=== PATIENT | male | born 1955 | race Caucasian/White ===

== ENCOUNTER 2017-04-16 20:21 | Emergency (ER) | payer BC, OTHER ==
[2017-04-16 20:27] VITALS: TEMP 98
--- NOTE | 2017-04-16 20:52 | ED ---
General Adult HPI - General Chief complaint: Chest Pain Stated complaint: CHEST PAIN/CONSTRICTION Time Seen by Provider: 04/16/17 20:39 Source: patient Mode of arrival: wheelchair Limitations: no limitations - History of Present Illness Initial comments: 61-year-old male presents for evaluation of chest pain. Patient began at approximately noon today which is 9 hours prior to presentation, pain was squeezing pressure across patient's chest. He also complained of a dull ache between his shoulder blades. Denies any nausea or diaphoresis. Patient has no known history of coronary artery disease. Patient has past medical history of hypertension. Has a strong family history of coronary artery disease including his father in his late 50s. Patient denies cough. Denies fever. Denies any pain in his jaw or arms. Patient is improved at the time my evaluation. No abdominal pain. No nausea vomiting or diarrhea. No lower extremity pain or swelling. Patient states he had a stress test many years ago. - Related Data Home Medications Medication Instructions Recorded Confirmed Ibuprofen [Motrin Ib] 800 mg PO TID PRN 04/16/17 04/16/17 Metoprolol Succinate (ER) [Toprol 100 mg PO DAILY 04/16/17 04/16/17 Xl] Allergies Allergy/AdvReac Type Severity Reaction Status Date / Time No Known Allergies Allergy Verified 04/16/17 21:19 Review of Systems ROS Statement: Those systems with pertinent positive or pertinent negative responses have been documented in the HPI. ROS Other: All systems not noted in ROS Statement are negative. Past Medical History Past Medical History: Hypertension Additional Past Medical History / Comment(s): KIDNEY STONES History of Any Multi-Drug Resistant Organisms: None Reported Additional Past Surgical History / Comment(s): CARPAL TUNEL Past Psychological History: No Psychological Hx Reported Smoking Status: Never smoker Past Alcohol Use History: None Reported Past Drug Use History: None Reported General Exam Limitations: no limitations General appearance: alert, in no apparent distress Head exam: Present: atraumatic, normocephalic Eye exam: Present: normal appearance, PERRL, EOMI ENT exam: Present: normal exam Neck exam: Present: normal inspection. Absent: tenderness, meningismus Respiratory exam: Present: normal lung sounds bilaterally. Absent: respiratory distress Cardiovascular Exam: Present: regular rate, normal rhythm GI/Abdominal exam: Present: soft, distended. Absent: tenderness Extremities exam: Present: normal inspection, normal capillary refill. Absent: pedal edema Back exam: Present: normal inspection, full ROM. Absent: tenderness Neurological exam: Present: alert, oriented X3, CN II-XII intact. Absent: motor sensory deficit Psychiatric exam: Present: normal affect, normal mood Skin exam: Present: warm, dry, intact. Absent: cyanosis, diaphoretic Course Vital Signs 04/16/17 04/16/17 04/16/17 20:25 20:57 21:44 Temperature 98 F Pulse Rate 88 68 68 Respiratory 20 16 16 Rate Blood Pressure 172/83 155/88 138/70 O2 Sat by Pulse 96 97 98 Oximetry EKG Findings - EKG Comments: EKG Findings:: EKG shows normal sinus rhythm, left atrial enlargement, incomplete right bundle branch block, ventricular rate 68, WA interval 166, QRS duration 98, QTC 429, no ST segment elevation. Medical Decision Making - Medical Decision Making 61-year-old male presenting with symptoms concerning for ACS. EKG negative for ST segment elevation, there is incomplete right bundle and slight ST segment depression in 3 and aVF. Patient took aspirin prior to arrival. Workup reveals normal white blood cell count, stable hemoglobin, normal lites. Initial troponin is negative. This is reassuring this patient's symptoms began approximately 9 hours prior to arrival. Patient is given nitroglycerin emergency department, he does have some belching and symptoms improve. Uncertain if this was nitroglycerin or from the belching. I will prefer the patient be admitted for serial cardiac enzymes and cardiology consult, I would like to place patient on heparin. Patient refuses, he states he would prefer to go home. He does not want to stay despite my concern. His is a nurse and she is at bedside. All parties are agreeable. They will be given outpatient cardiology referral. Patient will return with any worsening or changing symptoms. This is not my preference but is patient's wish. - Lab Data Result diagrams: 04/16/17 20:51 04/16/17 20:51 Lab Results 04/16/17 04/16/17 04/16/17 Range/Units 20:51 20:51 20:51 WBC 6.4 (3.8-10.6) k/uL RBC 4.71 (4.30-5.90) m/uL Hgb 13.6 (13.0-17.5) gm/dL Hct 37.8 L (39.0-53.0) % MCV 80.2 (80.0-100.0) fL MCH 28.9 (25.0-35.0) pg MCHC 36.0 (31.0-37.0) g/dL RDW 13.5 (11.5-15.5) % Plt Count 183 (150-450) k/uL Neutrophils % 63 % Lymphocytes % 30 % Monocytes % 5 % Eosinophils % 1 % Basophils % 0 % Neutrophils # 4.0 (1.3-7.7) k/uL Lymphocytes # 1.9 (1.0-4.8) k/uL Monocytes # 0.3 (0-1.0) k/uL Eosinophils # 0.1 (0-0.7) k/uL Basophils # 0.0 (0-0.2) k/uL PT (9.0-12.0) sec INR (<1.2) APTT (22.0-30.0) sec Sodium 141 (137-145) mmol/L Potassium 3.9 (3.5-5.1) mmol/L Chloride 100 (98-107) mmol/L Carbon Dioxide 28 (22-30) mmol/L Anion Gap 13 mmol/L BUN 19 (9-20) mg/dL Creatinine 1.04 (0.66-1.25) mg/dL Est GFR (MDRD) Af Amer >60 (>60 ml/min/1.73 sqM) Est GFR (MDRD) Non-Af >60 (>60 ml/min/1.73 sqM) Glucose 165 H (74-99) mg/dL Calcium 9.5 (8.4-10.2) mg/dL Magnesium 2.0 (1.6-2.3) mg/dL Total Bilirubin 0.6 (0.2-1.3) mg/dL AST 26 (17-59) U/L ALT 47 (21-72) U/L Alkaline Phosphatase 75 (38-126) U/L Total Creatine Kinase 97 (55-170) U/L CK-MB (CK-2) 1.0 (0.0-2.4) ng/mL CK-MB (CK-2) Rel Index 1.0 Troponin I <0.012 (0.000-0.034) ng/mL NT-Pro-B Natriuret Pep pg/mL Total Protein 7.1 (6.3-8.2) g/dL Albumin 4.4 (3.5-5.0) g/dL 04/16/17 04/16/17 Range/Units 20:51 20:51 WBC (3.8-10.6) k/uL RBC (4.30-5.90) m/uL Hgb (13.0-17.5) gm/dL Hct (39.0-53.0) % MCV (80.0-100.0) fL MCH (25.0-35.0) pg MCHC (31.0-37.0) g/dL RDW (11.5-15.5) % Plt Count (150-450) k/uL Neutrophils % % Lymphocytes % % Monocytes % % Eosinophils % % Basophils % % Neutrophils # (1.3-7.7) k/uL Lymphocytes # (1.0-4.8) k/uL Monocytes # (0-1.0) k/uL Eosinophils # (0-0.7) k/uL Basophils # (0-0.2) k/uL PT 10.2 (9.0-12.0) sec INR 1.0 (<1.2) APTT 22.5 (22.0-30.0) sec Sodium (137-145) mmol/L Potassium (3.5-5.1) mmol/L Chloride (98-107) mmol/L Carbon Dioxide (22-30) mmol/L Anion Gap mmol/L BUN (9-20) mg/dL Creatinine (0.66-1.25) mg/dL Est GFR (MDRD) Af Amer (>60 ml/min/1.73 sqM) Est GFR (MDRD) Non-Af (>60 ml/min/1.73 sqM) Glucose (74-99) mg/dL Calcium (8.4-10.2) mg/dL Magnesium (1.6-2.3) mg/dL Total Bilirubin (0.2-1.3) mg/dL AST (17-59) U/L ALT (21-72) U/L Alkaline Phosphatase (38-126) U/L Total Creatine Kinase (55-170) U/L CK-MB (CK-2) (0.0-2.4) ng/mL CK-MB (CK-2) Rel Index Troponin I (0.000-0.034) ng/mL NT-Pro-B Natriuret Pep 78 pg/mL Total Protein (6.3-8.2) g/dL Albumin (3.5-5.0) g/dL Critical Care Time Critical Care Time: Yes Total Critical Care Time: 35 Disposition Clinical Impression: Chest pain Disposition: HOME SELF-CARE Condition: Fair Instructions: Chest Pain (ED) Additional Instructions: Please return with any worsening or changing symptoms. Follow up with cardiology. Referrals: Jackeline Bearden MD [Primary Care Provider] - 1-2 days Brandon James MD [STAFF PHYSICIAN] - 1-2 days Time of Disposition: 22:10
[2017-04-16] MEDS ORDERED: NITROGLYCERIN SL TABS 0.4 MG TAB SUBLINGUAL STA (20:54)
[2017-04-16 20:58] VITALS: PULSE 68; RESP 16
[2017-04-16 21:01] LABS: Basophils % (A) 0 %; Eosinophils # (A) 0.1 k/uL (0-0.7); Eosinophils % (A) 1 %; HCT 37.8 % (39.0-53.0); HGB 13.6 gm/dL (13.0-17.5); Lymphocytes # (A) 1.9 k/uL (1.0-4.8); Lymphocytes % (A) 30 %; MCH 28.9 pg (25.0-35.0); MCV 80.2 fL (80.0-100.0); Mean Platelet Volume 7.3; Monocytes # (A) 0.3 k/uL (0-1.0); Monocytes % (A) 5 %; Neutrophils % (A) 63 %; Platelet Count 183 k/uL (150-450); RBC 4.71 m/uL (4.30-5.90); RDW 13.5 % (11.5-15.5); WBC 6.4 k/uL (3.8-10.6)
[2017-04-16 21:10] LABS: Partial Thromboplastin Time 22.5 sec (22.0-30.0); Prothrombin Time 10.2 sec (9.0-12.0)
[2017-04-16 21:13] LABS: ALT 47 U/L (21-72); AST 26 U/L (17-59); Albumin 4.4 g/dL (3.5-5.0); Alkaline Phosphatase 75 U/L (38-126); Anion Gap 13 mmol/L; Blood Urea Nitrogen 19 mg/dL (9-20); Calcium 9.5 mg/dL (8.4-10.2); Carbon Dioxide 28 mmol/L (22-30); Chloride 100 mmol/L (98-107); Glucose 165 mg/dL (74-99); Potassium 3.9 mmol/L (3.5-5.1); Sodium 141 mmol/L (137-145); Total Bilirubin 0.6 mg/dL (0.2-1.3); Total Protein 7.1 g/dL (6.3-8.2)
[2017-04-16 21:17] LABS: Creatine Kinase 97 U/L (55-170)
[2017-04-16 21:30] LABS: Troponin I <0.012 ng/mL (0.000-0.034)
[2017-04-16 21:45] VITALS: BP 138/70
--- NOTE | 2017-04-16 21:56 | XR ---
EXAMINATION TYPE: XR chest 2V DATE OF EXAM: 04/16/2017 COMPARISON: 01/08/2009 INDICATION: Chest pain TECHNIQUE: Frontal and lateral views of the chest are obtained. FINDINGS: The heart size is normal. The pulmonary vasculature is normal. The lungs are clear. IMPRESSION: 1. No acute pulmonary process.
== END 2017-04-16 22:22 | disposition home or self-care (01) ==
LOC: EC 20:21
DX: R07.9 Chest pain, unspecified (principal); R94.31 Abnormal electrocardiogram [ECG] [EKG]; I10 Essential (primary) hypertension; Z79.899 Other long term (current) drug therapy
CPT/HCPCS: 36415; 71046; 80053; 82550; 82553; 83735; 83880; 84484; 85025; 85610; 85730; 93005; 99285

== ENCOUNTER → 2018-08-20 | Outpatient (CLI) | payer BC ==
--- NOTE | 2018-08-20 10:07 | MR ---
EXAMINATION TYPE: MR shoulder RT wo con DATE OF EXAM: 08/20/2018 COMPARISON: X-ray 08/06/2018 HISTORY: Rt shoulder pain/impingment TECHNIQUE: Multiplanar, multisequence imaging of the right shoulder is performed without contrast. FINDINGS: Hypertrophic change of the AC joint is noted results in impingement rotator cuff. There is diffuse abnormal signal throughout the distal margin of the supraspinatus tendon compatible severe te ndinopathy. Suspect a 5 mm undersurface tear. No through thickness tear. There appears to be edema and increased signal at the insertion of the infraspinatus tendon demonstra aaron diffuse edema. Tendinopathy and partial intrasubstance tear suspected. No retraction. There is a 1.70 m area of through thickness signal near the insertion suspicious for a through thickness partial tear. Inferior glenohumeral ligament is intact. Cystic changes involving the humeral head likely secondary to chronic impingement. Bony labrum grossly intact by nonarthrogram technique. Bicipital tendon well situated the bicipital groove. IMPRESSION: 1. Impingement secondary to AC joint arthropathy. 2. Diffuse tendinopathy of the distal supraspinatus and infraspinatus tendons extending to the footpl ate. Partial intrasubstance tears with no evidence of retraction involving both tendons. Suspect a 1. 7 mm through thickness tear near the insertion of the infraspinatus tendon.
== END | disposition home or self-care (01) ==
LOC: RADMRIMAIN 09:08
PROVIDERS: ATTEND Family Medicine
DX: M25.511 Pain in right shoulder (principal); M12.9 Arthropathy, unspecified; M67.813 Other specified disorders of tendon, right shoulder

== ENCOUNTER 2021-01-18 11:20 | Emergency (ER) | payer BC ==
--- NOTE | 2021-01-18 12:46 | ED ---
General Adult HPI - General Chief complaint: Upper Respiratory Infection Stated complaint: Covid+/antibodies Time Seen by Provider: 01/18/21 12:01 Source: patient Mode of arrival: ambulatory Limitations: no limitations - History of Present Illness Initial comments: Dictation was produced using [employer] dictation software. please excuse any grammatical, word or spelling errors. Chief Complaint: Patient is a 65-year-old male denies any significant past medical history presents to the emergency department requesting monoclonal antibody infusion. History of Present Illness: 65-year-old male who has past medical history of hypertension. Does not have any other comorbidities. He is here in emergency department requesting monoclonal antibody infusion. He tested positive for cold recently. He's been symptomatic for 1 week. Told by multiple his family and friends that he should come to the ER to get monoclonal antibody infusion. Patient states he has symptoms of cough, fever, weakness and chest pain. He states that the chest pain is anterior. Not worse with exertion. Nonradiating not associated with diaphoresis or nausea. The ROS documented in this emergency department record has been reviewed and confirmed by me. Those systems with pertinent positive or negative responses have been documented in the HPI. All other systems are other negative and/or noncontributory. PHYSICAL EXAM: General Impression: Alert and oriented x3, not in acute distress HEENT: Normocephalic atraumatic, extra-ocular movements intact, pupils equal and reactive to light bilaterally, mucous membranes moist. Cardiovascular: Heart regular rate and rhythm Chest: Able to complete full sentences, no retractions, no tachypnea Abdomen: abdomen soft, non-tender, non-distended, no organomegaly Musculoskeletal: Pulses present and equal in all extremities, no peripheral edema Motor: no focal deficits noted Neurological: CN II-XII grossly intact, no focal motor or sensory deficits noted Skin: Intact with no visualized rashes Psych: Normal affect and mood ED course: 65-year-old well-appearing male presents emergency department requesting monoclonal antibody infusion. He is atypical chest pain with typical features. Likely related to COVID-19. He's been symptomatic of covered for 7 days. Vital signs upon arrival are within acceptable limits. Report is negative. EKG is benign. Patient given infusion for antibodies is reevaluated at bedside at 3:12 PM found to be stable medical condition. He states he feels fine. It was discussed with patient that he would need at least 2 negative troponins to reasonably rule out acute coronary syndrome in the acute phase. Patient states that he does not want to wait for the second troponin. Still to follow-up with his primary care doctor and return to emergency department if he has worsening chest symptoms. Rohith prefers this plan. He understands the risk of being discharged without a second troponin. EKG interpretation: Ventricular rate 59, sinus bradycardia,. Interval 182, QRS 80, QTc 407. No [place] prolongation, no QTC prolongation, no ST or T-wave changes noted. EKG compared to april showing no changes. Overall, this EKG is unremarkable - Related Data Home Medications Medication Instructions Recorded Confirmed Ibuprofen [Motrin Ib] 600 mg PO Q8H PRN 04/16/17 01/18/21 Azithromycin [Zithromax Z-pack (6 See Taper PO DAILY 01/18/21 01/18/21 tabs)] Dm/Acetaminophen/Doxylamine [Vicks 1 cap PO Q12H PRN 01/18/21 01/18/21 Nyquil Liquicaps] Nicotine [Nicoderm Cq] 1 patch TRANSDERM DAILY 01/18/21 01/18/21 Potassium Citrate [Urocit-K] 15 meq PO BID 01/18/21 01/18/21 Semaglutide [Ozempic] 0.25 mg SQ Q30D 01/18/21 01/18/21 Super Beta 250mg 250 mg PO BID 01/18/21 01/18/21 lisinopriL 40 mg PO DAILY 01/18/21 01/18/21 Allergies Allergy/AdvReac Type Severity Reaction Status Date / Time No Known Allergies Allergy Verified 01/18/21 14:27 Review of Systems ROS Statement: Those systems with pertinent positive or pertinent negative responses have been documented in the HPI. ROS Other: All systems not noted in ROS Statement are negative. Past Medical History Past Medical History: Hypertension Additional Past Medical History / Comment(s): KIDNEY STONES History of Any Multi-Drug Resistant Organisms: None Reported Additional Past Surgical History / Comment(s): CARPAL TUNEL Past Psychological History: No Psychological Hx Reported Smoking Status: Never smoker Past Alcohol Use History: None Reported Past Drug Use History: None Reported General Exam Limitations: no limitations Course Vital Signs 01/18/21 01/18/21 11:57 14:41 Temperature 98.9 F 98.3 F Pulse Rate 74 60 Respiratory 20 18 Rate Blood Pressure 171/101 147/82 O2 Sat by Pulse 96 95 Oximetry Medical Decision Making - Lab Data Lab Results 01/18/21 Range/Units 13:16 Troponin I <0.012 (0.000-0.034) ng/mL Disposition Clinical Impression: COVID-19, Chest pain Disposition: HOME SELF-CARE Condition: Good Instructions (If sedation given, give patient instructions): Coronavirus Disease 2019 (COVID-19), Chest Pain (ED) Is patient prescribed a controlled substance at d/c from ED?: No Referrals: Jackeline Bearden MD [Primary Care Provider] - 1-2 days
--- NOTE | 2021-01-18 12:47 | XR ---
EXAMINATION TYPE: XR chest 1V portable DATE OF EXAM: 01/18/2021 COMPARISON: 04/16/2017 INDICATION: Covid TECHNIQUE: Single frontal view of the chest is obtained. FINDINGS: The heart size is normal. The pulmonary vasculature is normal. The lungs are clear. IMPRESSION: 1. No acute pulmonary process.
[2021-01-18] MEDS ORDERED: SODIUM CHLORIDE 0.9% 50 ML IVPB ONE (13:00)
[2021-01-18] MEDS ORDERED: SOTROVIMAB (EUA) 500 MG in SODIUM CHLORIDE 0.9% 100 ML IVPB ONE (13:15)
[2021-01-18 14:42] VITALS: BP 147/82; PULSE 60; RESP 18; TEMP 98.3
[2021-01-18] MEDS ORDERED: ASPIRIN 81 MG PO STA (15:13)
== END 2021-01-18 15:20 | disposition home or self-care (01) ==
LOC: EC 11:20
DX: U07.1 COVID-19 (principal); I10 Essential (primary) hypertension; Z79.1 Long term (current) use of non-steroidal anti-inflammatories (NSAID); Z79.899 Other long term (current) drug therapy
CPT/HCPCS: 36415; 93005; 84484; 71045; 99285; Q0247

== ENCOUNTER 2022-06-08 20:57 | Emergency (ER) | payer MEDICARE ==
[2022-06-08 21:37] VITALS: RESP 18
[2022-06-08] MEDS ORDERED: LIDOCAINE 1% INJ 10MG/ML (30 ML VIAL-PF) SQ ONE (22:03)
[2022-06-08] MEDS ORDERED: DIPH,PERTUS(ACELL)TETVAC-LF 0.5 ML VIAL IM ONE (22:03)
--- NOTE | 2022-06-08 22:09 | ED ---
Wound/Laceration HPI - General Chief Complaint: Wound/Laceration Stated Complaint: Finger injury Time Seen by Provider: 06/08/22 21:45 Source: patient Mode of arrival: ambulatory Limitations: no limitations - History of Present Illness Initial Comments: Patient is a 66-year-old male presented to the emergency room with complaints of laceration to his right thumb on the lower portion ulnar aspect. He reports that he was working on a project with steel to by fours and his thumb was sliced along the edge of one of them. He denies any blunt force trauma, foreign object in the wound, range of motion impairment, numbness or tingling. He denies any injuries to any other location. He does not believe that his tetanus vaccination is up-to-date. He denies any other complaints or concerns at this time. He has past medical history significant for hypertension and kidney stones. - Related Data Home Medications Medication Instructions Recorded Confirmed Ibuprofen [Motrin Ib] 600 mg PO Q8H PRN 04/16/17 01/18/21 Azithromycin [Zithromax Z-pack (6 See Taper PO DAILY 01/18/21 01/18/21 tabs)] Dm/Acetaminophen/Doxylamine [Vicks 1 cap PO Q12H PRN 01/18/21 01/18/21 Nyquil Liquicaps] Nicotine [Nicoderm Cq] 1 patch TRANSDERM DAILY 01/18/21 01/18/21 Potassium Citrate [Urocit-K] 15 meq PO BID 01/18/21 01/18/21 Semaglutide [Ozempic] 0.25 mg SQ Q30D 01/18/21 01/18/21 Super Beta 250mg 250 mg PO BID 01/18/21 01/18/21 lisinopriL 40 mg PO DAILY 01/18/21 01/18/21 Allergies Allergy/AdvReac Type Severity Reaction Status Date / Time No Known Allergies Allergy Verified 06/08/22 21:37 Review of Systems ROS Statement: Those systems with pertinent positive or pertinent negative responses have been documented in the HPI. ROS Other: All systems not noted in ROS Statement are negative. Past Medical History Past Medical History: Hypertension Additional Past Medical History / Comment(s): KIDNEY STONES History of Any Multi-Drug Resistant Organisms: None Reported Additional Past Surgical History / Comment(s): CARPAL TUNEL Past Psychological History: No Psychological Hx Reported Smoking Status: Never smoker Past Alcohol Use History: None Reported Past Drug Use History: None Reported General Exam Limitations: no limitations General appearance: alert, in no apparent distress Head exam: Present: atraumatic, normocephalic, normal inspection Eye exam: Present: normal appearance, PERRL, EOMI. Absent: scleral icterus, conjunctival injection, periorbital swelling ENT exam: Present: normal exam, mucous membranes moist Neck exam: Present: normal inspection, full ROM Respiratory exam: Absent: respiratory distress, accessory muscle use Cardiovascular Exam: Present: regular rate GI/Abdominal exam: Absent: distended Right Hand Wrist exam: Present: full ROM, tenderness, laceration (2.5 cm face right thumb palmar aspect). Absent: swelling, deformity, crepitus, dislocation, amputation, nail avulsion Vascular: Present: normal capillary refill. Absent: vascular compromise Neurological exam: Present: alert, oriented X3, CN II-XII intact Psychiatric exam: Present: normal affect, normal mood Skin exam: Present: other (Laceration as above) Course Vital Signs 06/08/22 21:34 Temperature 97.2 F L Pulse Rate 85 Respiratory 18 Rate Blood Pressure 129/77 O2 Sat by Pulse 96 Oximetry Procedures - Laceration Laceration #1 Consent Obtained: verbal consent Indication: laceration Site: hand Size (cm): 2 (2.5) Description: linear Depth: simple, single layer Anesthetic Used: lidocaine 1% Anesthesia Technique: nerve block (Digital block) Pre-repair: wound explored, irrigated extensively Type of Sutures: nylon Size of Sutures: 4-0 Number of Sutures: 5 Technique: simple, interrupted Patient Tolerated Procedure: well, no complications Medical Decision Making - Medical Decision Making Was pt. sent in by a medical professional or institution (, PA, MEDICAL CERTIFICATION SPECIALIST, urgent care, hospital, or [facility]...) When possible be specific @ -No Did you speak to anyone other than the patient for history (EMS, parent, family, police, friend...)? What history was obtained from this source @ -No Did you review nursing and triage notes (agree or disagree)? Why? @ -I reviewed and agree with nursing and triage notes Were old charts reviewed (outside hosp., previous admission, EMS record, old EKG, old radiological studies, urgent care reports/EKG's, [facility] records)? Report findings @ -No old charts were reviewed Differential Diagnosis (chest pain, altered mental status, abdominal pain women, abdominal pain men, vaginal bleeding, weakness, fever, dyspnea, syncope, headache, dizziness, GI bleed, back pain, seizure, CVA, palpatations, mental health, musculoskeletal)? @ -not applicable EKG interpreted by me (3pts min.). @ -None done X-rays interpreted by me (1pt min.). @ -None done CT interpreted by me (1pt min.). @ -None done U/S interpreted by me (1pt. min.). @ -None done What testing was considered but not performed or refused? (CT, X-rays, U/S, labs)? Why? @ -None What meds were considered but not given or refused? Why? @ -None Did you discuss the management of the patient with other professionals (professionals i.e. , PA, MEDICAL CERTIFICATION SPECIALIST, lab, RT, psych nurse, rn social services, seat maker, teacher, founder chairman and chief creative officer, pillowcase cutter)? Give summary @ -No Was smoking cessation discussed for >3mins.? @ -No Was critical care preformed (if so, how long)? @ -No Were there social determinants of health that impacted care today? How? (Homelessness, low income, unemployed, alcoholism, drug addiction, transportation, low edu. Level, literacy, decrease access to med. care, prison, rehab)? @ -No Was there de-escalation of care discussed even if they declined (Discuss DNR or withdrawal of care, Hospice)? DNR status @ -No What co-morbidities impacted this encounter? (DM, HTN, Smoking, COPD, CAD, Cancer, CVA, ARF, Chemo, Hep., AIDS, mental health diagnosis, sleep apnea, morbid obesity)? @ -None Was patient admitted / discharged? Hospital course, mention meds given and route, prescriptions, significant lab abnormalities, going to OR and other pertinent info. @ -66-year-old male presenting to the emergency room with laceration to right thumb with a neurovascularly intact. No concern for fracture or foreign object. No indication for diagnostic imaging or laboratory studies. Unknown tetanus status will give T depth. Will close laceration. No indication for antibiotic therapy. Laceration closure tolerated well. Wound care discussed. Questions and concerns answered. Return parameters to the emergency room including when to have sutures removed reviewed. Will discharge home in stable conditions with sutures intact to right thumb laceration advising follow-up in the emergency room for suture removal in 7-10 days and follow-up with primary care provider. Undiagnosed new problem with uncertain prognosis? @ -No Drug Therapy requiring intensive monitoring for toxicity (Heparin, Nitro, Insulin, Cardizem)? @ -No Were any procedures done? @ -Yes, see procedures for details Diagnosis/symptom? @ -Right thumb laceration Acute, or Chronic, or Acute on Chronic? @ -Acute Uncomplicated (without systemic symptoms) or Complicated (systemic symptoms)? @ -Uncomplicated Side effects of treatment? @ -No Exacerbation, Progression, or Severe Exacerbation? @ -No Poses a threat to life or bodily function? How? (Chest pain, [place], [place], pneumonia, PE, COPD, DKA, ARF, appy, cholecystitis, CVA, Diverticulitis, Homicidal, Suicidal, threat to staff... and all critical care pts) @ -No. Case discussed with Dr. Blevins Disposition Clinical Impression: Laceration Disposition: HOME SELF-CARE Condition: Stable Instructions (If sedation given, give patient instructions): Laceration (ED), Care For Your Stitches (ED) Additional Instructions: Please keep wound clean and dry. Monitor for signs and symptoms of infection and seek medical attention as appropriate if symptoms occur. Please return to the e mergency department for suture removal in 7-10 days. Please return to the Emergency Department if symptoms worsen or any other concerns. Is patient prescribed a controlled substance at d/c from ED?: No Referrals: Jackeline Bearden MD [Primary Care Provider] - 1-2 days Time of Disposition: 22:39
[2022-06-08 23:04] VITALS: BP 126/72; PULSE 81; TEMP 98.5
== END 2022-06-08 23:07 | disposition home or self-care (01) ==
LOC: EC 20:57
DX: S61.011A Laceration without foreign body of right thumb without damage to nail, initial encounter (principal); I10 Essential (primary) hypertension; Z79.1 Long term (current) use of non-steroidal anti-inflammatories (NSAID); Z23 Encounter for immunization; W31.1XXA Contact with metalworking machines, initial encounter
CPT/HCPCS: 90715; 99283; 90471; J2001

== ENCOUNTER 2023-08-14 06:58 | Day surgery (SDC) | payer MEDICARE ==
[2023-08-13 11:59] VITALS: BMI 34.4
[2023-08-14] MEDS: IV FLUID CONTINUATION 1,000 ML IV ONE (07:29)
[2023-08-14] MEDS: LACTATED RINGERS 1,000 ML IV SCH (07:42)
[2023-08-14 07:48] LABS: Glucose,Whole Blood 106 mg/dL (70-110)
[2023-08-14 07:50] VITALS: RESP 16; TEMP 97.5
[2023-08-14] MEDS ORDERED: LIDOCAINE 2% (PF) 20 MG/ML 5 ML VIAL ONE (07:56)
[2023-08-14] MEDS ORDERED: PROPOFOL 10 MG/ML 20 ML VIAL IV ONE (07:56)
--- NOTE | 2023-08-14 08:01 | P.GSHP ---
History of Present Illness H&P Date: 08/14/23 Chief Complaint: GERD, screening 67-year-old male here for upper and lower endoscopy. Last colonoscopy 5 years ago. Patient has personal history of colon polyps. Patient also with frequent belching. Mild dysphagia at times. No previous EGD. Family history of colon cancer in an uncle. Past Medical History Past Medical History: Diabetes Mellitus, Hypertension, Prostate Disorder Additional Past Medical History / Comment(s): KIDNEY STONES, enlarged prostate History of Any Multi-Drug Resistant Organisms: None Reported Additional Past Surgical History / Comment(s): CARPAL TUNEL, kidney stones, colonoscopy Past Anesthesia/Blood Transfusion Reactions: No Reported Reaction Additional Past Anesthesia/Blood Transfusion Reaction / Comment(s): no blood transfusion Smoking Status: Never smoker Medications and Allergies Home Medications Medication Instructions Recorded Confirmed Type Ibuprofen [Motrin Ib] 600 mg PO Q8H PRN 04/16/17 08/14/23 History Potassium Citrate [Urocit-K] 15 meq PO HS 01/18/21 08/14/23 History Semaglutide [Ozempic] 0.25 mg SQ Q30D 01/18/21 08/14/23 History lisinopriL 20 mg PO HS 01/18/21 08/14/23 History tadalafiL [Cialis] 5 mg PO HS 08/13/23 08/14/23 History Allergies Allergy/AdvReac Type Severity Reaction Status Date / Time No Known Allergies Allergy Verified 08/14/23 07:26 Surgical - Exam Vital Signs Temp Pulse Resp BP Pulse Ox 97.5 F L 66 16 136/68 98 08/14/23 07:30 08/14/23 07:30 08/14/23 07:30 08/14/23 07:30 08/14/23 07:30 Physical exam: General: Well-developed, well-nourished HEENT: Normocephalic, sclerae nonicteric Abdomen: Nontender, nondistended Extremities: No edema Neuro: Alert and oriented Assessment and Plan (1) Colon cancer screening Narrative/Plan: Will proceed with upper and lower endoscopy. Current Visit: Yes Status: Acute Code(s): Z12.11 - ENCOUNTER FOR SCREENING FOR MALIGNANT NEOPLASM OF COLON SNOMED Code(s): 481307905
--- NOTE | 2023-08-14 08:21 | P.PCN ---
Date of Procedure: 08/14/23 Procedure(s) Performed: PREOPERATIVE DIAGNOSIS: GERD, screening, history of polyps POSTOPERATIVE DIAGNOSIS: Erosive gastritis, distal esophagitis, rectal polyp, diverticulosis PROCEDURE: 1. EGD with biopsy 2. Colonoscopy with snare polypectomy ANESTHESIA: [facility] [place] SURGEON: Venkat Allan M.D. SPECIMENS: Antrum, esophagus, polyp ENDOSCOPIC PROCEDURE: The patient was on the endoscopy table in the left decubitus position. The Olympus gastroscope was inserted into the oropharynx and passed under direct visualization to the region of the third portion of the duodenum. From that point the scope was slowly withdrawn inspecting all surfaces carefully. There were no neoplastic inflammatory or polypoid lesions throughout the duodenum. The pylorus was widely patent. The stomach was carefully inspected. There was erosive gastritis present in the prepyloric region. A small amount of old blood was present there. No large ulcerations were seen. Biopsies were taken. Retroflexion revealed a normal hiatus. The esophagus was then carefully examined. There was noted to be mild distal esophagitis present. A few small noncircumferential linear erosions were noted measuring between 1 and 2 cm in length. The remainder the esophagus appeared normal. The patient was kept on the endoscopy table in the left decubitus position. The Olympus colonoscope was inserted into the anus and passed under direct visualization to the base of the cecum. The appendiceal orifice was visualized. From that point the scope was slowly withdrawn inspecting all surfaces carefully. There were no neoplastic inflammatory or polypoid lesions throughout the cecum, ascending, transverse, descending, and sigmoid colon. In the proximal rectum a small polyp was seen and removed using the snare with cautery technique. The remainder of the rectum was normal. The patient had scattered diverticulosis as well. Digital rectal examination was normal. The patient was taken to the recovery room in stable condition per anesthesia guidelines. RECOMMENDATIONS: Await biopsy results. Anticipate repeat upper and lower endoscopy 5 years.
[2023-08-14 08:25] VITALS: PULSE 62
[2023-08-14 09:04] VITALS: BP 124/79
== END 2023-08-14 09:04 | disposition home or self-care (01) ==
LOC: ORWHC2ENDO 06:58
PROVIDERS: ATTEND Surgery
DX: Z12.11 Encounter for screening for malignant neoplasm of colon (principal); K29.50 Unspecified chronic gastritis without bleeding; E11.9 Type 2 diabetes mellitus without complications; I10 Essential (primary) hypertension; K21.00 Gastro-esophageal reflux disease with esophagitis, without bleeding; K57.30 Diverticulosis of large intestine without perforation or abscess without bleeding; K62.1 Rectal polyp; Z80.0 Family history of malignant neoplasm of digestive organs; Z87.442 Personal history of urinary calculi; Z87.19 Personal history of other diseases of the digestive system; Z79.899 Other long term (current) drug therapy
CPT/HCPCS: 88305; 88342; 45385; 43239; J2704; J2001

== ENCOUNTER → 2024-05-21 | Outpatient (CLI) | payer MEDICARE ==
--- NOTE | 2024-05-22 16:07 | US ---
EXAMINATION TYPE: US kidneys/renal and bladder DATE OF EXAM: 05/21/2024 COMPARISON: NONE CLINICAL INDICATION: Male, 68 years old with history of N20.0 calculus of kidney; History of kidney s tones TECHNIQUE: Grayscale imaging of the bilateral kidneys and urinary bladder: FINDINGS: EXAM MEASUREMENTS: Right Kidney: 11.7 x 5.9 x 5.6 cm Left Kidney: 12.5 x 6.9 x 5.4 cm Right Kidney: small dense echogenic foci , finding can be compatible with small nonobstructing renal stone Left Kidney: stones, largest = 1.3cm . No hydronephrosis is evident. Bladder: appears wnl Bilateral Jets seen: no Urinary bladder is sonolucent. The posterior tinsley normal. IMPRESSION: Bilateral renal stones. [facility], , 05/22/2024 4:05 PM
== END | disposition home or self-care (01) ==
LOC: RADUSWWP 14:02
PROVIDERS: ATTEND Family Medicine
DX: N20.0 Calculus of kidney (principal)
CPT/HCPCS: 76770